=== PATIENT | female | born 2005 | race Caucasian/White ===

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

== ENCOUNTER 2025-04-17 10:08 | Emergency (ER) | payer SELFPAY ==
[2025-04-17 10:23] VITALS: BP 140/80; PULSE 125; RESP 16; TEMP 36.6
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
--- NOTE | 2025-04-17 11:18 | DI.RAD_ITS ---
Exam(s) XR WRIST RT COMPLETE EXAM: XR WRIST RT COMPLETE CLINICAL HISTORY: posterior wrist pain. TECHNIQUE: 2D digital imaging was performed. COMPARISON: No exams were available for comparison FINDINGS: 3 views No evidence of fracture or dislocation nor significant ulnar variance. Bone density normal. No osseous lesions. Scaphoid and scapholunate distance are normal. IMPRESSION: No significant osseous findings in the right wrist. DATA REPOSITORY: RADIATION DOSE DELIVERED:
[2025-04-17] MEDS: Ibuprofen 600 MG TAB PO (11:31)
== END 2025-04-17 12:19 | disposition home or self-care (01) ==
PROVIDERS: Emergency Provider Emergency Medicine; PCP Student in an Organized Health Care Education/Training Program
DX: S63.501A Unspecified sprain of right wrist, initial encounter (principal); X50.0XXA Overexertion from strenuous movement or load, initial encounter
CPT/HCPCS: 99283; 73110